=== PATIENT | male | born 1995 | race African-American/Black ===

== ENCOUNTER 2018-04-24 21:21 | Emergency (ER) | payer SELFPAY ==
[2018-04-24] MEDS ORDERED: AMOXicillin 250 MG CAP ONE (21:37)
[2018-04-24] MEDS ORDERED: HYDROcodone/Acetaminophen 10/325 mg Tablet ONE (21:37)
== END 2018-04-24 21:45 | disposition home or self-care (01) ==
LOC: BURERS 21:21
DX: K04.7 Periapical abscess without sinus (principal); K02.9 Dental caries, unspecified
CPT/HCPCS: 99282

== ENCOUNTER 2019-02-23 07:08 | Emergency (ER) | payer SELFPAY ==
[2019-02-23] MEDS ORDERED: Acetaminophen/Codeine 30-300mg Tablet ONE (07:25)
== END 2019-02-23 07:26 | disposition home or self-care (01) ==
LOC: BURERS 07:08
DX: K04.7 Periapical abscess without sinus (principal); K02.9 Dental caries, unspecified; F17.210 Nicotine dependence, cigarettes, uncomplicated
CPT/HCPCS: 99282

== ENCOUNTER 2019-03-11 22:33 | Emergency (ER) | payer OTHER, SELFPAY ==
[2019-03-11] MEDS ORDERED: Cephalexin 500 MG CAP ONE (22:52)
[2019-03-11] MEDS ORDERED: traMADol HCl 50 MG TAB ONE (22:52)
--- NOTE | 2019-03-11 23:31 | RAD ---
LEFT INDEX FINGER THREE VIEWS 03/11/19 There is a fracture through the terminal tuft of the distal phalanx with mild displacement. There is also laceration of the soft tissues of the distal finger. IMPRESSION: Distal phalanx fracture. POS: HOME
== END 2019-03-11 23:12 | disposition home or self-care (01) ==
LOC: BURERS 22:33
DX: S67.191A Crushing injury of left index finger, initial encounter (principal); S62.631B Displaced fracture of distal phalanx of left index finger, initial encounter for open fracture; F17.210 Nicotine dependence, cigarettes, uncomplicated; W23.0XXA Caught, crushed, jammed, or pinched between moving objects, initial encounter